=== PATIENT | male | born 1960 | race Caucasian/White ===

== ENCOUNTER 2023-02-21 10:45 | Outpatient (CLI) | payer BC ==
[2023-02-21 11:06] LABS: BASOPHILS # (AUTO) 0.1 10^3/uL (0.0-0.1); BASOPHILS % (AUTO) 1.1 %; EOSINOPHILS # (AUTO) 0.3 10^3/uL (0.0-0.7); EOSINOPHILS % (AUTO) 3.1 %; HCT - HEMATOCRIT 42.4 % (42.0-52.0); HGB - HEMOGLOBIN 14.5 g/dL (14.0-18.0); LYMPHOCYTES % (AUTO) 37.1 %; MEAN CORPUSCULAR HEMOGLOBIN 30.5 pg (27.0-31.0); MEAN CORPUSCULAR HGB CONC 34.2 g/dL (32.0-36.0); MEAN CORPUSCULAR VOLUME 89.1 fL (80.0-94.0); MEAN PLATELET VOLUME 10.9 fL (7.4-11.4); MONOCYTES # (AUTO) 0.6 10^3/uL (0.0-1.0); MONOCYTES % (AUTO) 7.7 %; NEUTROPHILS # (AUTO) 4.1 10^3/uL (1.5-6.6); NEUTROPHILS % (AUTO) 50.6 %; PLT - PLATELET COUNT 244 10^3/uL (130-450); RED BLOOD COUNT 4.76 10^6/uL (4.70-6.10); RED CELL DISTRIBUTION WIDTH 13.4 % (12.0-15.0); WHITE BLOOD COUNT 8.2 x10^3/uL (4.8-10.8)
[2023-02-21 11:18] LABS: ALBUMIN 4.2 g/dL (3.2-5.5); ALBUMIN/GLOBULIN RATIO 1.6 (1.0-2.2); ALKALINE PHOSPHATASE 92 IU/L (42-121); ALT ALANINE AMINOTRANSFERASE 22 IU/L (10-60); AST ASPARTATE AMINOTRANSFERASE 13 IU/L (10-42); BILIRUBIN,TOTAL 0.4 mg/dL (0.2-1.0); BUN - BLOOD UREA NITROGEN 11 mg/dL (6-20); CALCIUM 9.6 mg/dL (8.5-10.3); CARBON DIOXIDE - CO2 28 mmol/L (21-32); CHLORIDE 107 mmol/L (101-111); CHOL/HDL RATIO 6.7 (<5.0); CHOLESTEROL 200 mg/dL; GFR - MDRD 76 (>89); GLUCOSE 116 mg/dL (74-104); HDL CHOLESTEROL 30 mg/dL; LDL CHOLESTEROL,CALCULATED 116 mg/dL; LDL/HDL RATIO 3.9 (<3.6); POTASSIUM 4.5 mmol/L (3.5-4.5); SODIUM 138 mmol/L (135-145); TOTAL PROTEIN 6.8 g/dL (6.4-8.9); TRIGLYCERIDES 271 mg/dL (48-352); VLDL CHOLESTEROL 54 mg/dL
[2023-02-21 13:33] LABS: ESTIMATED AVERAGE GLUCOSE 111 mg/dL (70-100); HEMOGLOBIN A1c% 5.5 % (4.27-6.07)
== END 2023-02-21 10:46 | disposition home or self-care (01) ==
LOC: LAB 10:45
PROVIDERS: ATTEND Family Medicine
DX: K92.1 Melena (principal); F17.210 Nicotine dependence, cigarettes, uncomplicated; Z13.6 Encounter for screening for cardiovascular disorders; Z12.5 Encounter for screening for malignant neoplasm of prostate
CPT/HCPCS: 36415; 80053; 80061; 83036; 83721; 84153; 85025

== ENCOUNTER 2023-03-04 11:15 | Outpatient (CLI) | payer BC ==
--- NOTE | 2023-03-04 11:51 | Ultrasound Report ---
PROCEDURE: Aorta Screening INDICATIONS: SMOKER TECHNIQUE: Real time scanning was performed of the aorta and iliac arteries, with image documentatio n. COMPARISON: None. FINDINGS: Aorta: Proximal aortic diameter measures 2.1 x 2 cm. Mid-aorta measures 1.6 x 1.9 cm. Distal aorti c diameter is 1.6 x 1.6 cm. Iliac arteries: Right common iliac artery measures 0.9 x 0.9 cm. Left common iliac artery measures 0.9 x 0.9 cm. IMPRESSION: 1.No abdominal aortic aneurysm. 2.Bilateral common iliac arteries are normal in caliber, where visualized. Recommended intervals for follow-up imaging of ectatic aortas and abdominal aortic aneurysms, per ACR consensus guidelines: 2.5-2.9 cm: 5 years 3.0-3.4 cm: 3 years 3.5-3.9 cm: 2 years 4.0-4.4 cm: 1 year 4.5-4.9 cm: 6 months + endovascular referral 5.0-5.5 cm: 3-6 months + endovascular referral Reviewed by: Keyanna Drummond MD on 03/04/2023 11:50 AM PST Approved by: Keyanna Drummond MD on 03/04/2023 11:50 AM PST Station ID: [id number]
--- NOTE | 2023-03-04 16:44 | CT Report ---
PROCEDURE: Low Dose Lung Cancer Screen INDICATIONS: SMOKER TECHNIQUE: A CT scan of the chest was performed. Intravenous contrast media was not administered. Images were re corded and evaluated at appropriate window settings. Reformats: axial MIP of the chest, coronal and s agittal. For radiation dose reduction, the following was used: automated exposure control, adjustment of mA and/or kV according to patient size. COMPARISON: None. FINDINGS: Image quality: Excellent. Prior cancer history: Unknown Lungs and pleura: No pleural effusions. No pneumothorax. Calcified right upper lobe nodule. Triangul ar juxta fissural nodules adjacent to the right minor and major fissures. 4 mm posterior medial left lower lobe part solid nodule, series 3 image 167. No other suspicious lung nodules. There is a backgr ound of mild emphysema. No groundglass opacities or consolidations. Moderate central bilateral perihi lar bronchial wall thickening and narrowing. Mediastinum: Heart size is normal. No pericardial effusion. No large vessel abnormality. No mediastin al adenopathy by size criteria. Mild coronary artery calcification. No anterior or posterior mediast inal mass. Normal esophagus without hiatal hernia Chest wall and lower neck: Thyroid is unremarkable. No axillary or supraclavicular adenopathy by size . Bones: No aggressive osseous abnormality. Upper Abdomen: Unremarkable. IMPRESSION: Lung RAD: 2 - Benign. Recommendation: Continue annual screening in 12 Months with LDCT Non-Lung Significant Findings: None. Reviewed by: Hilda Cage MD on 03/04/2023 4:43 PM PST Approved by: Hilda Cage MD on 03/04/2023 4:43 PM PST Station ID: [id number]
== END 2023-03-04 11:16 | disposition home or self-care (01) ==
LOC: DI 11:15
PROVIDERS: ATTEND Family Medicine
DX: Z12.2 Encounter for screening for malignant neoplasm of respiratory organs (principal); Z13.6 Encounter for screening for cardiovascular disorders; F17.210 Nicotine dependence, cigarettes, uncomplicated

== ENCOUNTER 2023-03-31 12:21 | Outpatient (CLI) | payer BC | END 2023-03-31 12:22 | disposition home or self-care (01) | LOC: LAB 12:21 | PROVIDERS: ATTEND Urology | DX: R97.20 Elevated prostate specific antigen [PSA] (principal) | CPT/HCPCS: 36415; 84153 ==

== ENCOUNTER 2023-04-19 09:16 | Outpatient (CLI) | payer BC ==
[2023-04-19] MEDS ORDERED: GADOTERATE MEGLUMINE 10 MMOL/20 ML VIAL ONE (10:24)
--- NOTE | 2023-04-19 12:18 | MRI Report ---
PROCEDURE: Pelvis W/WO INDICATIONS: ELEVATED PSA CONTRAST: 15.5ml clariscan TECHNIQUE: Coronal ultra fast SE, axial T1 FSE with fat saturation, 3-plane nonbreath-hold T2 FSE. After the ad ministration of contrast, dynamic axial, delayed axial and coronal ultra fast GE or 2-D spoiled GE wi th fat saturation through the pelvis. Optional diffusion weighted imaging and ADC may be performed. COMPARISON: None. FINDINGS: Image quality: Diffusion weighted and dynamic contrast enhanced images are diagnostic. Prostate: Gland size is 3.5 x 2.8 x 3.4 cm; ellipsoid gland volume is 17.3 mL. In the right peripheral zone, particularly the posterior lateral and anterior region, there is a 2.1 x 1.1 x 1.8 cm lesion (09/14, 08/14). T2 score 5. DWI score 5. DCE positive. Pi RADS 5. If targeted bio psies are positive, the suspected highest grade disease is probably in the anterior peripheral zone. The seminal vesicles appear clear. Due to the extent of contact the capsule, at least microcapsular i nvolvement is suspected. Transitional zone heterogenous nodules are present, either well encapsulated or mostly encapsulated, compatible with PI-RADS 1 or 2 likely BPH nodules. Mildly T2 hypointense heterogenous striated appearance of the peripheral zone is commonly seen with c urrent or prior prostatitis, PI-RADS 2. Genitourinary system: Mildly trabeculated bladder usually due to chronic obstruction. Bowel and peritoneum: No bowel obstruction or pathologic ascites. Nodes and vessels: No pathologic lymph nodes by size criteria. No aneurysmal vessel identified. Soft tissues: Unremarkable Bones: No acute or suspicious osseous finding. IMPRESSION: PI RADS 5 lesion in the right peripheral zone, with possible capsular involvement. If targeted biopsi es are positive, the suspected highest grade disease is probably in the anterior portion of this lesi on. Reviewed by: Roque Meng MD on 04/19/2023 12:17 PM PST Approved by: Roque Meng MD on 04/19/2023 12:17 PM PST Station ID: [id number]
[2023-04-19] MEDS: GADOTERATE MEGLUMINE 10 MMOL/20 ML VIAL IVP ONE (16:39)
== END 2023-04-19 09:17 | disposition home or self-care (01) ==
LOC: LAB 09:16
PROVIDERS: ATTEND Urology
DX: R97.20 Elevated prostate specific antigen [PSA] (principal); N42.89 Other specified disorders of prostate
CPT/HCPCS: 36415; 72197; 82565; A9575

== ENCOUNTER 2023-05-05 06:31 | Day surgery (SDC) | payer BC ==
[2023-05-05] MEDS: LACTATED RINGERS 1,000 ML IV ONE ×2 (06:52→06:59)
[2023-05-05] MEDS ORDERED: PROPOFOL 500 MG/50 ML 500 MG/50 ML VIAL ONE (07:16)
--- NOTE | 2023-05-05 07:25 | ANESTHESIA ---
Pre-Anesthesia VS, & Labs - Diagnosis screening exam, elevated psa - Procedure colonoscopy and US guided transrectal prostate biopsy Vital Signs: Temp Pulse Resp BP Pulse Ox O2 Flow Rate 36.2 C L 71 15 118/83 H 98 05/05/23 06:59 05/05/23 06:59 05/05/23 06:59 05/05/23 06:59 05/05/23 06:59 Height: 5 ft 9 in Weight (kg): 76.9 kg Body Mass Index: 25.0 BMI Classification: Overweight - NPO >8 hours Home Medications and Allergies Home Medications: Ambulatory Orders Atorvastatin [Lipitor] 20 mg PO QPM 04/29/23 Atorvastatin [Lipitor] 20 mg PO QPM 04/29/23 Allergies/Adverse Reactions: Allergies Allergy/AdvReac Type Severity Reaction Status Date / Time No Known Drug Allergies Allergy Verified 05/05/23 07:16 Anes History & Medical History - Anesthetic History Anesthesia Complications: reports: No previous complications - Medical History Cardiovascular: reports: High cholesterol Pulmonary: reports: None Gastrointestinal: reports: None Urinary: reports: None Neuro: reports: None Musculoskeletal: reports: None Endocrine/Autoimmune: reports: None Skin: reports: None Smoking Status: Current every day smoker Psychosocial: reports: Cannabis (every other day) History of Cancer?: No - Surgical History General: reports: Colonoscopy, Other Exam General: Alert, Oriented x3, Cooperative, No acute distress Dental: WNL Mouth Openin Fingerbreadth Neck Mobility: Normal Mallampati classification: III Thyromental Distance: 4-6 cm Mental/Cognitive Status: Alert/Oriented X3, Normal for patient Plan Anesthesia Type: General, Total IV Consent for Procedure(s) Verified and Reviewed: Yes Code Status: Attempt Resuscitation ASA classification: 2-Mild systemic disease Is this case an emergency?: No
[2023-05-05] MEDS ORDERED: MIDAZOLAM 2 MG/2 ML VIAL ONE (07:35)
[2023-05-05] MEDS ORDERED: LIDOCAINE-MPF 1% 30 ML VIAL ONE (07:59)
[2023-05-05] MEDS: LIDOCAINE 1% 50 ML MDV IM ONE (08:07)
[2023-05-05] MEDS ORDERED: ONDANSETRON 4 MG/2 ML VIAL IVP PRN (08:21)
[2023-05-05] MEDS ORDERED: HYDROcod/ACETAM 5/325 MG TABLET PO PRN (08:21)
[2023-05-05] MEDS: LACTATED RINGERS 300 ML IV ONE (08:25)
--- NOTE | 2023-05-05 08:25 | Discharge Plan ---
Discharge Plan Problem Reviewed?: Yes Disposition: Home, Self Care Diet: Regular Activity Restrictions: No Restrictions Shower Restrictions: No Driving Restrictions: No Instruction Topics: Biopsy Prostate Additional Instructions or Follow Up instructions: You will be contacted for follow-up in [address] Granado No Smoking: If you smoke, Please STOP! Call for help. Follow-up with: Bhavna Velásquez MD [Primary Care Provider] - Daryl Granado MD [Provider Admit Priv/Credential] -
[2023-05-05 08:48] VITALS: BP 138/75; O2SAT 98
--- NOTE | 2023-05-05 14:48 | ANESTHESIA POST OP EVALUATION ---
Anesthesia Post Eval - Post Anesthesia Eval Vitals: Last Vital Signs Temp 36.0 C L 05/05/23 08:44 Pulse 66 05/05/23 08:44 Resp 16 05/05/23 08:44 BP 138/75 H 05/05/23 08:44 Pulse Ox 98 05/05/23 08:44 O2 Flow Rate CV Function Including HR & BP: Stable Pain Control: Satisfactory Nausea & Vomiting: Negative Mental Status: Baseline Respiratory Status: Airway Patent Hydration Status: Satisfactory Anesthesia Complications: None
--- NOTE | 2023-05-09 08:04 | OPERATIVE REPORT ---
Operative Report - General Procedure Date: 05/05/23 Planned Procedure: Transrectal ultrasound-guided prostate biopsy Pre-Op Diagnosis: elevated PSA Procedure Performed: Transrectal ultrasound-guided prostate biopsy Post Op Diagnosis: elevated PSA - Procedure Note Primary Surgeon: Loy Anesthesia Provider: [facility] [place] Anesthesia Technique: MAC Pathology: Routine prostate biopsy samples Findings: Normal prostate biopsy Complications: none - Other Other Information/Narrative: After informed consent was obtained the patient was brought to the OR with Dr. Ornelas for a colonoscopy procedure. He proceeded with that procedure and this will be dictated separately. After Dr. Ornelas was finished the patient was still in the left lateral decubitus position and ready for my procedure. A formal timeout was performed reconfirming the patient and procedure. A transrectal ultrasound was placed per rectum and the prostate was visualized. Using 1% lidocaine we placed 5 cc of local at the lateral aspect of the prostate and the neurovascular bundles bilaterally. The prostate was well-visualized and it was measured and the measurements were printed off and added to the chart. Using an 18-gauge 25 cm prostate biopsy gun we took samples from the routine areas of the prostate but we took an extra 2 samples from the right mid PZ. A total of 14 samples were taken This concluded the procedure the patient tolerated the procedure well and was brought to PACU that further incident. He will follow-up in 1 week's time for pathology discussion
== END 2023-05-05 06:32 | disposition home or self-care (01) ==
LOC: SDS 06:31
PROVIDERS: ATTEND Surgery
PROC: 0DBL8ZZ Excision of Transverse Colon, Via Natural or Artificial Opening Endoscopic (ICD-10-PCS; 2023-05-05)
PROC: 0VB07ZX Excision of Prostate, Via Natural or Artificial Opening, Diagnostic (ICD-10-PCS; 2023-05-05)
PROC: 0DBH8ZZ Excision of Cecum, Via Natural or Artificial Opening Endoscopic (ICD-10-PCS; principal; 2023-05-05 07:30)
DX: Z12.11 Encounter for screening for malignant neoplasm of colon (principal); D12.0 Benign neoplasm of cecum; D12.3 Benign neoplasm of transverse colon; K57.30 Diverticulosis of large intestine without perforation or abscess without bleeding; C61 Malignant neoplasm of prostate; F17.210 Nicotine dependence, cigarettes, uncomplicated
CPT/HCPCS: 45380; 55700; J7120

== ENCOUNTER 2023-08-23 15:08 | Outpatient (CLI) | payer BC ==
[2023-08-23 15:25] LABS: BASOPHILS # (AUTO) 0.1 10^3/uL (0.0-0.1); BASOPHILS % (AUTO) 1.1 %; EOSINOPHILS # (AUTO) 0.2 10^3/uL (0.0-0.7); HGB - HEMOGLOBIN 14.9 g/dL (14.0-18.0); LYMPHOCYTES # (AUTO) 3.8 10^3/uL (1.5-3.5); MEAN CORPUSCULAR HEMOGLOBIN 30.1 pg (27.0-31.0); MEAN CORPUSCULAR HGB CONC 33.1 g/dL (32.0-36.0); MEAN CORPUSCULAR VOLUME 90.9 fL (80.0-94.0); MEAN PLATELET VOLUME 10.8 fL (7.4-11.4); MONOCYTES # (AUTO) 0.6 10^3/uL (0.0-1.0); MONOCYTES % (AUTO) 5.9 %; NEUTROPHILS # (AUTO) 5.4 10^3/uL (1.5-6.6); NEUTROPHILS % (AUTO) 53.7 %; PLT - PLATELET COUNT 270 10^3/uL (130-450); RED BLOOD COUNT 4.95 10^6/uL (4.70-6.10); RED CELL DISTRIBUTION WIDTH 13.2 % (12.0-15.0); WHITE BLOOD COUNT 10.1 x10^3/uL (4.8-10.8)
[2023-08-23 15:55] LABS: CALCIUM 9.7 mg/dL (8.5-10.3); POTASSIUM 4.5 mmol/L (3.5-4.5)
--- NOTE | 2023-08-23 16:07 | XRAY Report ---
PROCEDURE: Chest 2V INDICATIONS: PROSTATE CANCER TECHNIQUE: 2 views of the chest were acquired. COMPARISON: 03/04/2023. FINDINGS: Surgical changes and devices: None. Lungs and pleura: No pleural effusions or pneumothorax. Lungs are clear. Mediastinum: Mediastinal contours appear normal. Heart size is normal. Bones and chest wall: No suspicious bony lesions. Overlying soft tissues appear unremarkable. IMPRESSION: No acute cardiopulmonary process. Reviewed by: Denzel Cooper MD on 08/23/2023 4:06 PM PDT Approved by: Denzel Cooper MD on 08/23/2023 4:06 PM PDT Station ID: [id number]
[2023-08-23 16:31] LABS: PARTIAL THROMBOPLASTIN TIME 30.4 secs (24.9-33.3)
[2023-08-23 16:36] LABS: INR 1.1 (0.8-1.2); PT - PROTHROMBIN TIME 11.7 secs (9.9-12.6)
== END 2023-08-23 15:09 | disposition home or self-care (01) ==
LOC: LAB 15:08
DX: Z01.818 Encounter for other preprocedural examination (principal); C61 Malignant neoplasm of prostate
CPT/HCPCS: 36415; 80048; 85025; 85610; 85730

== ENCOUNTER 2023-08-28 11:45 | Emergency (ER) | payer BC ==
--- NOTE | 2023-08-28 12:47 | ED Physician Documentation ---
History of Present Illness - Stated complaint Stated Complaint: HIP PX/RT SD - Chief complaint Chief Complaint: Ext Problem - History obtained from History obtained from: Patient, Family - History of Present Illness Pain level max: 8 Pain level now: 3 - Additonal information Additional information: Patient is a 62-year-old male accompanied by his . He is complaining of right-sided back pain and right-sided hip pain ongoing for the past several days. Has a history of prostate cancer, states that he had a PET scan in June that did not show any evidence of metastases. He is scheduled to have his prostate removed in September. He states that the pain does not bother him too much during the day but has increasing pain at night, especially when he is laying down trying to sleep. No numbness or tingling. He states that the pain seem to start in the right low lumbar area, but is now moved more into the hip and the thigh. Review of Systems Constitutional: denies: Fever, Chills Respiratory: denies: Cough GI: denies: Vomiting Musculoskeletal: denies: Neck pain, Back pain Neurologic: denies: Headache PD PAST MEDICAL HISTORY - Past Medical History Past Medical History: Yes Cardiovascular: High cholesterol Respiratory: None Neuro: None Endocrine/Autoimmune: None GI: None : None HEENT: Chronic vision loss Psych: None Musculoskeletal: None Derm: None - Past Surgical History Past Surgical History: Yes General: Colonoscopy, Other - Present Medications Home Medications: Ambulatory Orders Medication Instructions Recorded Confirmed Atorvastatin [Lipitor] 20 mg PO QPM 04/29/23 04/29/23 oxyCODONE [Roxicodone] 5 - 10 mg PO Q6H PRN #14 tablet 08/28/23 MDD 6 - Allergies Allergies/Adverse Reactions: Allergies Allergy/AdvReac Type Severity Reaction Status Date / Time No Known Drug Allergies Allergy Verified 08/28/23 11:49 - Social History Does the pt smoke?: No Smoking Status: Never smoker Does the pt drink ETOH?: No Does the pt have substance abuse?: No - Immunizations Immunizations are current?: No - POLST Patient has POLST: No PD ED PE NORMAL - Vitals Vital signs reviewed: Yes - General General: Alert and oriented X 3, No acute distress - Respiratory Respiratory: No respiratory distress - Abdomen Abdomen: Soft, Non tender, Non distended - Back Back: No spinal TTP (No midline tenderness to palpation or percussion. No step- off or deformity.) - Derm Derm: Warm and dry - Extremities Extremities: Other (No deformity of the right lower extremity. Full range of motion of the hip without any pain. No tenderness to palpation. Neurovascular intact. No swelling.) - Neuro Neuro: Alert and oriented X 3 - Psych Psych: Normal mood, Normal affect Results - Vitals Vitals: Vital Signs - 24 hr 08/28/23 08/28/23 11:49 14:17 Temperature 36.5 C 36.5 C Heart Rate 60 53 L Respiratory 16 16 Rate Blood Pressure 170/90 H 156/89 H O2 Saturation 100 99 Oxygen O2 Source Room air - Rads (name of study) L spine xray Relevant Findings:: Final report received, See rad report R hip xray Relevant Findings:: Final report received, See rad report PD Medical Decision Making - ED course Complexity details: reviewed results, re-evaluated patient, considered differential, d/w patient ED course: 62-year-old male with right hip pain, unclear etiology. No acute findings on xray today. Will place on pain medications for home. No evidence of infection. No warmth or swelling. Patient counseled regarding signs and symptoms for which I believe and urgent re-evaluation would be necessary. Patient with good understanding of and agreement to plan and is comfortable going home at this time This document was made in part using voice recognition software. While efforts are made to proofread this document, sound alike and grammatical errors may occur. Departure - Departure Disposition: 01 Home, Self Care Clinical Impression: Hip pain, right Condition: Good Instructions: ED Acute Pain [facility] Follow-Up: your,doctor in 1 week [Other] Prescriptions: oxyCODONE [Roxicodone] 5 - 10 mg PO Q6H PRN #14 tablet MDD 6 PRN Reason: pain Comments: The cause of your symptoms is unclear, it is recommended you follow-up with your doctor for further care. Your x-rays of your back and your hip did not show any acute abnormalities. This is likely a soft tissue injury causing your pain. [facility] [place]. I am prescribing a short course of narcotic pain medication for you. These are potentially dangerous and addictive medications that should be used carefully. These medications may constipate you. Take an [id number] stool softener (docusate) twice daily with plenty of water while taking these medications. If you go 24 hours without a bowel movement, take [id number] miralax, per package instructions. Do not drink or drive while taking these medications. If you received narcotic or sedating medications while in the emergency department, do not drive for 24 hours. Store this medication in a safe, secure place and out of reach of children. It is a violation of federal law to give or sell this medication to another person or to use in a manner other than prescribed. The ED will not refill narcotic prescriptions, including prescriptions lost or stolen. To dispose of unwanted medications: 1. [facility] at [address] in [place] has a medication drop box. They accept prescription medications (in pill form) Tuesday through Tuesday 9:00 a.m. to 5:00 p.m. 2. [facility] [employer] accepts prescription medications (in pill form only) for disposal year round. Call for more information. 3. Contact the [facility] for the next [facility] sponsored prescription drug collection event. , [phone], or [phone]; Forms: PCP List Discharge Date/Time: 08/28/23 14:05
[2023-08-28] MEDS: oxyCODONE 5 MG TABLET PO STA (13:12)
--- NOTE | 2023-08-28 13:26 | XRAY Report ---
PROCEDURE: Hip w/Pelvis 2-3V RT INDICATIONS: prostate cancer, R hip pain TECHNIQUE: 2 views of the hip were acquired. COMPARISON: None. FINDINGS: Bones: No fractures or dislocations. No suspicious bony lesions. Soft tissues: No suspicious soft tissue calcifications or masses. IMPRESSION: No acute bony abnormality. If pain persists with conservative management, consider further evaluation with cross-sectional imagi ng such as CT or MRI. Reviewed by: Joslyn Phan MD, PhD on 08/28/2023 12:24 PM KEN Approved by: Joslyn Phan MD, PhD on 08/28/2023 12:24 PM AKLYLY Station ID: [id number]
--- NOTE | 2023-08-28 13:29 | XRAY Report ---
PROCEDURE: Lumbar Spine 2-3V INDICATIONS: prostate cancer, low back pain TECHNIQUE: 3 views of the lumbar spine were acquired. COMPARISON: None. FINDINGS: Surgical change: None. Bones: 5 [id number] vertebrae are present. There is normal bony alignment. No acute fracture or traumatic subluxation. No suspicious bony lesions. Multilevel degenerative changes with disc height loss and osteophytosis, worse at L4-L5 and L5-S1. Soft tissues: Overlying bowel gas pattern is normal. No suspicious soft tissue calcifications. IMPRESSION: No acute fracture or traumatic subluxation. No suspicious osseous lesion. If pain persists with conservative management, consider further evaluation with cross-sectional imagi ng such as CT or MRI. Reviewed by: Joslyn Phan MD, PhD on 08/28/2023 12:28 PM KEN Approved by: Joslyn Phan MD, PhD on 08/28/2023 12:28 PM KEN Station ID: [id number]
[2023-08-28 14:23] VITALS: BP 156/89; O2SAT 99
== END 2023-08-28 14:05 | disposition home or self-care (01) ==
LOC: ED 11:45
DX: M25.551 Pain in right hip (principal); M54.50 Low back pain, unspecified; C61 Malignant neoplasm of prostate
CPT/HCPCS: 72100; 73502; 99284; A9270

== ENCOUNTER 2023-10-25 10:40 | Outpatient (CLI) | payer BC ==
[2023-10-25 11:08] LABS: CHOL/HDL RATIO 3.7 (<5.0); CHOLESTEROL 132 mg/dL; HDL CHOLESTEROL 36 mg/dL; LDL CHOLESTEROL,CALCULATED 76 mg/dL; LDL/HDL RATIO 2.1 (<3.6); TRIGLYCERIDES 102 mg/dL; VLDL CHOLESTEROL 20 mg/dL
== END 2023-10-25 10:41 | disposition home or self-care (01) ==
LOC: LAB 10:40
PROVIDERS: ATTEND Urology
DX: C61 Malignant neoplasm of prostate (principal); E78.2 Mixed hyperlipidemia
CPT/HCPCS: 36415; 80061; 83721; 84153

== ENCOUNTER 2023-12-01 13:13 | Outpatient (CLI) | payer BC | END 2023-12-01 13:14 | disposition home or self-care (01) | LOC: LAB 13:13 | PROVIDERS: ATTEND Urology | DX: C61 Malignant neoplasm of prostate (principal) | CPT/HCPCS: 36415; 84153 ==